=== PATIENT | female | born 1970 | race Caucasian/White ===

== ENCOUNTER 2023-01-16 02:54 | Emergency (ER) | payer BC ==
[~2023-01-16] VITALS: Ht 162.6 cm; Wt 63.0 kg
[2023-01-16] MEDS ORDERED: CITALOPRAM HBR20 MG PO (03:11)
[2023-01-16] MEDS ORDERED: VARENICLINE TART1 MG PO (03:11)
[2023-01-16] MEDS ORDERED: VENTOLIN HFA18 GM INH (03:12)
[2023-01-16] MEDS ORDERED: COMBIVENT RESPIM4 GM INH (04:21)
[2023-01-16 05:03] VITALS: BP 145/77
== END 2023-01-16 05:04 | disposition home or self-care (01) ==
LOC: ED 02:54
DX: J42 Unspecified chronic bronchitis (principal); Z20.822 Contact with and (suspected) exposure to COVID-19; Z86.16 Personal history of COVID-19; Z87.891 Personal history of nicotine dependence
CPT/HCPCS: 36415; 71045; 80053; 83880; 85025; 85379; 87502; 94640; J2930; U0003

== ENCOUNTER 2025-02-19 02:41 | Emergency (ER) | payer BC ==
[~2025-02-19] VITALS: Ht 162.6 cm; Wt 68.3 kg
[~2025-02-19 02:41] MED LIST: ARMOUR THYROID120 MG PO; CITALOPRAM HBR20 MG PO; COMBIVENT RESPIM4 GM INH; PREDNISONE20 MG PO; QVAR REDIHALE10.6 GM IH; VARENICLINE TART1 MG PO; VENTOLIN HFA18 GM INH
[2025-02-19] MEDS ORDERED: HYDROCODON-ACE1 EA10 PO (03:25)
[2025-02-19] MEDS ORDERED: HYDROCODONE BIT/ACETAMINOPHEN 5/325 MG 1 TAB HOME.PACK PO ONE (03:30)
[2025-02-19 05:10] VITALS: BP 154/84
== END 2025-02-19 03:55 | disposition home or self-care (01) ==
LOC: ED 02:41
DX: S52.124A Nondisplaced fracture of head of right radius, initial encounter for closed fracture (principal); E03.9 Hypothyroidism, unspecified; F43.10 Post-traumatic stress disorder, unspecified; X58.XXXA Exposure to other specified factors, initial encounter; Z79.899 Other long term (current) drug therapy
CPT/HCPCS: 29125; 73080; 99283-25; A9270